=== PATIENT | male | born 1995 | race Two or more races ===

== ENCOUNTER 2020-06-18 16:02 | Outpatient (CLI) | payer OTHER | END 2020-06-18 17:18 | disposition home or self-care (01) | LOC: OFIC 805 16:02 | PROVIDERS: ATTEND Otolaryngology Otology & Neurotology | DX: K21.9 Gastro-esophageal reflux disease without esophagitis (principal); J02.8 Acute pharyngitis due to other specified organisms; H93.13 Tinnitus, bilateral ==